=== PATIENT | male | born 1955 | race Caucasian/White ===

== ENCOUNTER 2016-07-01 07:05 | Day surgery (SDC) | payer OTHER ==
[2016-06-30 09:44] LABS: BASOPHILS 0.6 %; BASOPHILS ABSOLUTE 0.06 10/3/uL (0.0-0.16); EOSINOPHILS 4.3 %; EOSINOPHILS ABSOLUTE 0.41 10/3/uL (0.0-0.53); HEMATOCRIT 45.8 % (40.0-51.0); HEMOGLOBIN 16.1 g/dL (13.6-17.8); IMMATURE GRANULOCYTES 0.2 %; IMMATURE GRANULOCYTES ABSOLUTE 0.02 10/3/uL (0.0-0.11); LYMPHOCYTES ABSOLUTE 3.13 10/3/uL (0.67-4.30); MEAN CORPUSCULAR HEMOGLOB 33.1 pg (26.0-34.0); MEAN PLATELET VOLUME 9.2 fL (9.2-13.0); MONOCYTES 13.7 %; NEUTROPHILS 48.2 %; NEUTROPHILS ABSOLUTE 4.57 10/3/uL (2.02-8.40); PLATELET COUNT 270 10/3/uL (150-400); RBC DISTRIBUTION WIDTH 12.5 % (12.0-16.0); RED CELL COUNT 4.87 10/6/uL (4.7-6.1); WHITE BLOOD CELLS 9.5 10/3/uL (4.5-10.5)
[2016-06-30 09:45] LABS: MANUAL DIFF NO %; MEAN CORPUS HGB CONC 35.2 g/dL (32.0-36.0)
[2016-06-30 10:01] LABS: A/G RATIO 1.2 (0.7-1.9); ALBUMIN 3.9 G/DL (3.5-5.0); ALKALINE PHOSPHATASE 99 U/L (45-117); BUN (BLOOD UREA NITROGEN) 15 MG/DL (6-23); CALCIUM, SERUM 9.2 MG/DL (8.5-10.4); CHLORIDE, SERUM 107 MMOL/L (96-112); CO2 (CARBON DIOXIDE) 30 MMOL/L (24-34); CREATININE 0.92 MG/DL (0.70-1.30); GFR AFRICAN AMERICAN 102 ML/MIN (>=60); GFR NON AFRICAN AMERICAN 88 ML/MIN (>=60); GLUCOSE, SERUM 109 MG/DL (60-99); POTASSIUM, SERUM 3.9 MMOL/L (3.5-5.3); SGOT(AST) 23 U/L (5-40); SGPT(ALT) 47 U/L (5-65); SODIUM, SERUM 145 MMOL/L (135-148); TOTAL BILIRUBIN 0.3 MG/DL (0-1.2); TOTAL PROTEIN 7.1 G/DL (6.0-8.5)
[2016-06-30 10:02] LABS: GLOBULIN 3.2 G/DL (2.5-4.1)
--- NOTE | ~2016-07-01 | OP ---
Record Of Operation [facility] [address] [place]. [address] NAME: ABUNDIO KENNEDY : 51 STATUS : [facility]#: [id number] AGE: 61 ADM/REG DATE : 07/01/16 MR#: [id number] REPORT SERV DATE: 07/01/16 DICTATED BY: WILEY POTTER DATE: 07/01/16 REPORT STATUS : Draft TRANSCRIBED BY: MODL DATE: 07/01/16 DATE OF PROCEDURE: 07/01/2016 PREOPERATIVE DIAGNOSIS: Calculus, left ureter. POSTOPERATIVE DIAGNOSIS: Calculus, left ureter, spontaneously passed into the bladder. OPERATIVE PROCEDURE: 1. Cysto, left retrograde pyelogram. 2. Removal of left ureteral stone from bladder. ANESTHESIA: General endotracheal. SURGEON: Wiley Potter M.D. SPECIMENS: Left ureteral stone (taken to show the patient's family and then sent to the lab for stone analysis from PACU). ESTIMATED BLOOD LOSS: None. DRAINS: None. COMPLICATION: None. IMMEDIATE POSTOP: Satisfactory. DESCRIPTION OF PROCEDURE: The patient was brought to the cysto suite, given inhalational anesthetic, and placed in lithotomy position. Perineum and genitalia were prepped and draped in sterile fashion. Video cystourethroscopy was then performed using #22 cystoscope Foroblique lens. Distal urethra was normal. 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 When the scope was introduced into the bladder and the lens removed to drain the bladder, a 5 mm stone was seen to efflux out of the cystoscope sheath. This was clearly the ureteral stone in question. At this point, the Foroblique lens was reintroduced and a left retrograde pyelogram was performed which was completely normal without evidence of filling defect and good drainage of the upper tract. For this reason, therefore a ureteroscopy was not performed as it was felt to be necessary. The stone was placed on the back table to be shown to the patient's family prior to sending to the lab, and the patient was then awakened and sent to recovery in satisfactory condition. /DIPAK Wiley Potter M.D. Record Of Operation [facility] [address] [place]. [address] NAME: ABUNDIO KENNEDY : 51 STATUS : [facility] PAT#: [id number] AGE: 61 ADM/REG DATE : 07/01/16 MR#: [id number] REPORT SERV DATE: 07/01/16 DICTATED BY: WILEY POTTER DATE: 07/01/16 REPORT STATUS : Draft TRANSCRIBED BY: MODL DATE: 07/01/16 / [id number] CC: Kaitlynn Christian Paul E
[~2016-07-01 07:05] MED LIST: ACET500CAP PO; DIOVAN320 MG PO; FLEX PO; FLOMAX4 PO; LOPID6 PO; NORCO1 TAB PO; NORV5 PO
[2016-07-06 18:10] LABS: STONE COMPOSITION TWO DNR (())
== END 2016-07-01 11:52 | disposition home or self-care (01) ==
LOC: SDC 07:05
PROVIDERS: Urology
PROC: BT1FYZZ Fluoroscopy of Left Kidney, Ureter and Bladder using Other Contrast (ICD-10-PCS; principal; 2016-07-01 08:45)
DX: N20.1 Calculus of ureter (principal); I10 Essential (primary) hypertension; E78.00 Pure hypercholesterolemia, unspecified; Z88.1 Allergy status to other antibiotic agents; Z90.49 Acquired absence of other specified parts of digestive tract; Z98.890 Other specified postprocedural states
CPT/HCPCS: 71020; 74420; 80053; 82365; 85025; 93005; C1758; J2250; J2370; J2405; J2710; J3010; Q9967